=== PATIENT | male | born 1960 ===

== ENCOUNTER 2022-01-13 16:48 | Emergency (ER) | payer SELFPAY ==
[~2022-01-13] VITALS: Ht 170.2 cm; Wt 70.5 kg
[2022-01-13 17:34] VITALS: BP 144/84
== END 2022-01-13 19:05 | disposition left against medical advice (07) ==
LOC: ER 16:50
DX: M25.561 Pain in right knee (principal); Z53.21 Procedure and treatment not carried out due to patient leaving prior to being seen by health care provider